=== PATIENT | male | born 2000 ===

== ENCOUNTER → 2021-03-05 | Outpatient (CLI) | payer OTHER | LOC: COL.RAD 11:09 | DX: S09.93XA Unspecified injury of face, initial encounter (principal) ==

== ENCOUNTER → 2021-03-31 | Outpatient (CLI) | payer SELFPAY | LOC: COL.RAD 07:07 | DX: G44.309 Post-traumatic headache, unspecified, not intractable (principal); J32.4 Chronic pansinusitis | CPT/HCPCS: A9575 ==